=== PATIENT | female | born 1970 | race Caucasian/White ===

== ENCOUNTER 2019-01-19 15:11 | Emergency (ER) | payer OTHER ==
[~2019-01-19 15:11] MED LIST: IBU600 PO; PER PO; PREN-114 PO
--- NOTE | 2019-01-19 15:25 | ER Report ---
History and Physical Time Seen By MD: 15:24 HPI/ROS CHIEF COMPLAINT: Fever headache HISTORY OF PRESENT ILLNESS: Otherwise healthy 48-year-old female long history of sinus infections had a recent sinal plastic comes in with a complaint of a head ache and 102 fever about 4 days prior to presentation headache is subsequently gotten better she said she had a fever of 101 yesterday no nuchal rigidity but did say she has some stiffness all over including her neck but she is not complaining of any nuchal rigidity this time was seen by primary care and referred here for possible meningitis rule out. On arrival here she is denying neck pain of any kind unable to elicit on examination. However she is having some sinus tenderness and denies fever at this time no chest pain no cough no nausea no vomiting no diarrhea no urinary complaints REVIEW OF SYSTEMS: Respiratory: No cough, no dyspnea. Cardiovascular: No chest pain, no palpitations. Gastrointestinal: No vomiting, no abdominal pain. Musculoskeletal: No back pain. Remainder of the 14 system rev: Yes Allergies: Coded Allergies: No Known Drug Allergies (Verified Allergy, Mild, 12/16/06) Home Meds Reported Medications Vit/Fe Fumarate/Fa ( Vitamins Tablet) 1 Tab Tablet, 1 TAB PO TAKE ONE TABLET DAILY WHILE NURSING 12/17/06 Ibuprofen (Motrin) 600 Mg Tab, 600 MG PO TAKE ONE TAB THREE TIMES A DAY NEEDE FOR PAIN 12/17/06 Oxycodone/Acetaminophen (Percocet 5/325) 1 Ea Tab, 0.5 TAB-CAP PO TAKE ONE OR TWO TABS PO EVERY 4 HOURS PRN NEEDED FOR PAIN 12/17/06 Reviewed Nurses Notes: Yes Old Medical Records Reviewed: Yes Constitutional Vital Sign - Last 24 Hours 01/19/19 15:18 Temp 98.3 Pulse 66 Resp 17 B/P (MAP) 122/70 Pulse Ox 94 O2 Delivery Room Air Physical Exam General Appearance: The patient is alert, has no immediate need for airway protection and no current signs of toxicity. [ ] Eyes: Pupils equal and round no injection. Respiratory: Chest is non tender, lungs are clear to auscultation. Cardiac: regular rate and rhythm [ ] Gastrointestinal: Abdomen is soft and non tender, no masses, bowel sounds normal. Musculoskeletal: Normal Neck is supple and non tender. Negative Kernig's and Brudzinski sign negative for nuchal rigidity Extremities have full range of motion and are non tender. Skin: No rashes or lesions. [ ] DIFFERENTIAL DIAGNOSIS: After history and physical exam differential diagnosis was considered for sinusitis viral upper respiratory viral infection meningitis Medical Decision Making Data Points Result Diagram: 01/19/19 1530 01/19/19 1530 Laboratory Hematology Test 01/19/19 15:30 Red Blood Count 4.28 M/uL (4.17-5.56) Mean Corpuscular Volume 97.8 fL (80.0-96.0) Mean Corpuscular Hemoglobin 34.5 pg (26.0-33.0) Mean Corpuscular Hemoglobin Concent 35.2 g/dL (32.0-36.0) Red Cell Distribution Width 12.5 % (11.5-14.5) Mean Platelet Volume 8.9 fL (7.2-11.1) Neutrophils (%) (Auto) 59.0 % (39.4-72.5) Lymphocytes (%) (Auto) 32.3 % (17.6-49.6) Monocytes (%) (Auto) 6.6 % (4.1-12.4) Eosinophils (%) (Auto) 1.1 % (0.4-6.7) Basophils (%) (Auto) 1.0 % (0.3-1.4) Nucleated RBC Relative Count (auto) 0.1 /100WBC Neutrophils # (Auto) 3.7 K/uL (2.0-7.4) Lymphocytes # (Auto) 2.0 K/uL (1.3-3.6) Monocytes # (Auto) 0.4 K/uL (0.3-1.0) Eosinophils # (Auto) 0.1 K/uL (0.0-0.5) Basophils # (Auto) 0.1 K/uL (0.0-0.1) Nucleated RBC Absolute Count (auto) 0.00 K/uL Urine Color Yellow Urine Clarity Slightly-cloudy Urine pH 6.0 pH (4.8-9.5) Urine Specific [place] 1.015 Urine Protein Negative mg/dL (NEGATIVE) Urine Glucose (UA) Negative mg/dL (NEGATIVE) Urine Ketones Negative mg/dL (NEGATIVE) Urine Blood Negative (NEGATIVE) Urine Nitrite Negative (NEGATIVE) Urine Bilirubin Negative (NEGATIVE) Urine Urobilinogen Negative mg/dL (0.2-1.9) Urine Leukocyte Esterase Negative (NEGATIVE) Urine RBC 1 /HPF (0-2/HPF) Urine WBC 12 /HPF (0-5/HPF) Urine Squamous Epithelial Cells Many /LPF (</=FEW) Urine Bacteria Moderate /HPF (NONE-FEW) Urine Mucus None /HPF (NONE-FEW) Sodium Level 138 mmol/L (137-145) Potassium Level 3.9 mmol/L (3.5-5.0) Chloride Level 106 mmol/L (98-107) Carbon Dioxide Level 22 mmol/L (22-31) Blood Urea Nitrogen 12 mg/dl (7-18) Creatinine 0.70 mg/dl (0.52-1.04) Glomerular Filtration Rate Calc > 60.0 Random Glucose 108 mg/dl (75-110) Calcium Level 9.1 mg/dl (8.4-10.2) Total Bilirubin 0.3 mg/dl (0.2-1.3) Aspartate Amino Transf (AST/SGOT) 29 U/L (0-35) Alanine Aminotransferase (ALT/SGPT) 30 U/L (0-56) Alkaline Phosphatase 48 U/L (0-126) Total Protein 7.5 g/dl (6.3-8.2) Albumin 4.4 g/dl (3.5-5.0) Chemistry Test 01/19/19 15:30 White Blood Count 6.3 k/uL (4.5-11.0) Red Blood Count 4.28 M/uL (4.17-5.56) Hemoglobin 14.8 g/dL (12.0-16.0) Hematocrit 41.9 % (34.0-47.0) Mean Corpuscular Volume 97.8 fL (80.0-96.0) Mean Corpuscular Hemoglobin 34.5 pg (26.0-33.0) Mean Corpuscular Hemoglobin Concent 35.2 g/dL (32.0-36.0) Red Cell Distribution Width 12.5 % (11.5-14.5) Platelet Count 197 K/uL (150-450) Mean Platelet Volume 8.9 fL (7.2-11.1) Neutrophils (%) (Auto) 59.0 % (39.4-72.5) Lymphocytes (%) (Auto) 32.3 % (17.6-49.6) Monocytes (%) (Auto) 6.6 % (4.1-12.4) Eosinophils (%) (Auto) 1.1 % (0.4-6.7) Basophils (%) (Auto) 1.0 % (0.3-1.4) Nucleated RBC Relative Count (auto) 0.1 /100WBC Neutrophils # (Auto) 3.7 K/uL (2.0-7.4) Lymphocytes # (Auto) 2.0 K/uL (1.3-3.6) Monocytes # (Auto) 0.4 K/uL (0.3-1.0) Eosinophils # (Auto) 0.1 K/uL (0.0-0.5) Basophils # (Auto) 0.1 K/uL (0.0-0.1) Nucleated RBC Absolute Count (auto) 0.00 K/uL Urine Color Yellow Urine Clarity Slightly-cloudy Urine pH 6.0 pH (4.8-9.5) Urine Specific [place] 1.015 Urine Protein Negative mg/dL (NEGATIVE) Urine Glucose (UA) Negative mg/dL (NEGATIVE) Urine Ketones Negative mg/dL (NEGATIVE) Urine Blood Negative (NEGATIVE) Urine Nitrite Negative (NEGATIVE) Urine Bilirubin Negative (NEGATIVE) Urine Urobilinogen Negative mg/dL (0.2-1.9) Urine Leukocyte Esterase Negative (NEGATIVE) Urine RBC 1 /HPF (0-2/HPF) Urine WBC 12 /HPF (0-5/HPF) Urine Squamous Epithelial Cells Many /LPF (</=FEW) Urine Bacteria Moderate /HPF (NONE-FEW) Urine Mucus None /HPF (NONE-FEW) Glomerular Filtration Rate Calc > 60.0 Calcium Level 9.1 mg/dl (8.4-10.2) Total Bilirubin 0.3 mg/dl (0.2-1.3) Aspartate Amino Transf (AST/SGOT) 29 U/L (0-35) Alanine Aminotransferase (ALT/SGPT) 30 U/L (0-56) Alkaline Phosphatase 48 U/L (0-126) Total Protein 7.5 g/dl (6.3-8.2) Albumin 4.4 g/dl (3.5-5.0) Urinalysis Test 01/19/19 15:30 Urine Color Yellow Urine Clarity Slightly-cloudy Urine pH 6.0 pH (4.8-9.5) Urine Specific [place] 1.015 Urine Protein Negative mg/dL (NEGATIVE) Urine Glucose (UA) Negative mg/dL (NEGATIVE) Urine Ketones Negative mg/dL (NEGATIVE) Urine Blood Negative (NEGATIVE) Urine Nitrite Negative (NEGATIVE) Urine Bilirubin Negative (NEGATIVE) Urine Urobilinogen Negative mg/dL (0.2-1.9) Urine Leukocyte Esterase Negative (NEGATIVE) Urine RBC 1 /HPF (0-2/HPF) Urine WBC 12 /HPF (0-5/HPF) Urine Squamous Epithelial Cells Many /LPF (</=FEW) Urine Bacteria Moderate /HPF (NONE-FEW) Urine Mucus None /HPF (NONE-FEW) ED Course/Re-evaluation ED Course ED course medical decision 48 showed tumor comes in with a headache intermittent and some fevers as well she is afebrile on arrival here her exam is shows no consistency with meningitis she has no nuchal rigidity she has no Kernig's or Brudzinski sign she has no headache at this time however she does have a CT scan confirming maxillary bilateral sinus infection she does have a long history injection at [place] [facility] done before patient will be diagnosed with sinusitis which is the etiology I do not believe this to be a bacterial even viral meningitis this time with the understanding to come back if her symptoms worsen I will start her on by mouth antibiotics this time with primary care follow-up Decision to Disposition Date: Jan 19, 2019 Decision to Disposition Time: 16:48 Depart Departure Latest Vital Signs Vital Signs Date Time Temp Pulse Resp B/P (MAP) Pulse Ox O2 Delivery O2 Flow Rate FiO2 01/19/19 15:18 98.3 66 17 122/70 94 Room Air Impression: Primary Impression: Sinusitis Condition: Improved Disposition: HOME OR SELF-CARE Referrals: NIMA COVINGTON MD (PCP) 5 Days New Scripts Amoxicillin 500 Mg Tab (AMOXICILLIN 500 MG TAB) 500 Mg Tablet 2 TAB PO Q12H, #56 TAB TAKE TWO TABLETS BY MOUTH EVERY 12 HOURS Prov: ALEX ZAVALETA MD 01/19/19 Patient Instructions: Sinusitis (ED) ALEX ZAVALETA MD Jan 19, 2019 15:26
[2019-01-19 15:44] LABS: PLATELET COUNT, AUTOMATED 197 K/uL (150-450)
--- NOTE | 2019-01-19 16:29 | RADIOLOGY IMAGING REPORT ---
FACILITY: [facility] - [place] PATIENT NAME: Lisseth Muro : 1970 MR: [id number] V: [id number] EXAM DATE: ORDERING PHYSICIAN: ALEX ZAVALETA TECHNOLOGIST: Location: [facility] Patient: Lisseth Muro : 1970 Visit/Account:[id number] Date of Sevice: 01/19/2019 EXAMINATION: CT head without IV contrast HISTORY: Fever. COMPARISON: None. TECHNIQUE: Contiguous axial images were obtained from the skull base to the vertex without intraven ous contrast. Sagittal and coronal reformatted images are also submitted. One of the following dose optimization techniques was utilized in the performance of this exam: Autom ated exposure control; adjustment of the mA and/or kV according to the patient's size; or use of an i terative reconstruction technique. Specific details can be referenced in the facility's radiology C T exam operational policy. FINDINGS: Brain volume: Normal. Ventricles: Normal. Acute ischemic changes: None. Hemorrhage: No acute intracranial hemorrhage. Masses/edema: None. Bautista-white: Negative. White matter: Normal. Vessels: Negative. Extra-axial: Negative. Calvarium/scalp: Negative. Skull base/visualized face: Negative. Visualized sinuses/orbits: Negative. IMPRESSION: No acute hemorrhage or intracranial mass lesion. No CT evidence of acute infarct or intracranial infe ction. Report Dictated By: Symone Jimenez MD at 01/19/2019 4:22 PM Report E-Signed By: Symone Jimenez MD at 01/19/2019 4:24 PM [email or web address]
[2019-01-19 16:30] VITALS: BP 118/66
--- NOTE | 2019-01-19 16:43 | RADIOLOGY IMAGING REPORT ---
[place] [facility] [place] NAME: Lisseth Muro : 1970 MR: [id number] V: [id number] EXAM DATE: ORDERING PHYSICIAN: ALEX ZAVALETA TECHNOLOGIST: Location: [facility] [place] Patient: Lisseth Muro : 1970 Visit/Account:[id number] Date of Sevice: 01/19/2019 EXAMINATION: CT sinus without IV contrast HISTORY: Fever. History of septoplasty. COMPARISON: CT head from 01/19/2019. TECHNIQUE: Contiguous axial images were obtained through the paranasal sinuses without intravenous c ontrast administration. Coronal and sagittal reformatted images were obtained from the axial source d romina. One of the following dose optimization techniques was utilized in the performance of this exam: Autom ated exposure control; adjustment of the mA and/or kV according to the patient's size; or use of an i terative reconstruction technique. Specific details can be referenced in the facility's radiology C T exam operational policy. FINDINGS: Maxillary sinuses: Minimal mucosal thickening in the bilateral maxillary sinuses. There is an uncomp licated right Elin cell. Frontal sinuses: Hypoplastic right frontal sinus. The frontal sinuses are clear. Ethmoid air cells: Minimal mucosal thickening in the bilateral ethmoid air cells. Sphenoid sinuses: Negative. Ostiomeatal units: Patent. Nasal septum/nasal cavity: Previous septoplasty with 5 mm defect versus thinning of the anterior nasa l septum. The septum is midline. Orbits: Negative. Visualized intracranial contents/soft tissues: Negative. TMJs: Negative. IMPRESSION: 1. Minimal nonobstructive inflammation of the bilateral maxillary sinuses and ethmoid air cells, wit hout other evidence of sinusitis. 2. 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 3. Previous septoplasty with a 5 mm defect versus thinning of the anterior nasal septum. Report Dictated By: Symone Jimenez MD at 01/19/2019 4:24 PM Report E-Signed By: Symone Jimenez MD at 01/19/2019 4:38 PM WSN:[email or web address]
[2019-01-19] MEDS ORDERED: AMOX500T10 PO (16:48)
== END 2019-01-19 16:56 | disposition home or self-care (01) ==
LOC: ER 15:36
DX: J32.0 Chronic maxillary sinusitis (principal)
CPT/HCPCS: 70450; 70486; 81001; 82040; 82247; 82310; 82374; 82435; 82565; 82947; 84075; 84132; 84155; 84295; 84450; 84460; 84520; 85025; 99284